=== PATIENT | female | born 1945 | race Caucasian/White ===

== ENCOUNTER 2018-10-09 14:17 | Observation (INO) | payer OTHER ==
[2018-10-09 16:05] LABS: INR 1.1; PROTHROMBIN TIME 12.8 Seconds (9.8-13.1)
[2018-10-09 16:07] LABS: PARTIAL THROMBOPLASTIN TIME 29.3 Seconds (25.6-37.1)
[2018-10-09 16:12] LABS: ALB/GLOB RATIO 1.4 (1.0-2.1); ALBUMIN 4.2 g/dL (3.5-5.0); ALT/SGPT 24 U/L (9-52); AST/SGOT 22 U/L (14-36); BLOOD UREA NITROGEN 14 mg/dl (7-17); CALCIUM 9.8 mg/dL (8.4-10.2); GFR NON-AFRICAN AMERICAN > 60
[2018-10-09 16:31] LABS: BASO # 0.2 K/uL (0.0-0.2); BASO % 1.8 % (0.0-2.0); EOS # 0.5 K/uL (0.0-0.7); EOS % 5.6 % (0.0-4.0); LYMPH # 3.1 K/uL (1.0-4.3); LYMPH % 36.3 % (20.0-40.0); MEAN CELL VOLUME 54.2 fl (81.0-99.0); MEAN CORPUSCULAR HEMOGLOBIN 14.7 pg (27.0-31.0); MEAN CORPUSCULAR HGB CONC 27.1 g/dL (33.0-37.0); MEAN PLATELET VOLUME 8.9 fl (7.2-11.7); MONO # 0.3 K/uL (0.0-0.8); NEUT # 4.4 K/uL (1.8-7.0); NEUT % 52.3 % (50.0-75.0); NRBC % 0.1 % (0.0-0.0); PLATELET COUNT 399 K/uL (130-400); RBC 4.14 Mil/uL (3.80-5.20); RED CELL DISTRIBUTION WIDTH 26.9 % (11.5-14.5); WHITE BLOOD COUNT 8.4 K/uL (4.8-10.8)
[2018-10-09 16:35] LABS: HEMOGLOBIN 6.1 g/dL (12.0-16.0)
[2018-10-09] MEDS ORDERED: Pantoprazole 40 MG in Sodium Chloride 0.9% 100 ML IVPB SCH (16:45)
--- NOTE | 2018-10-09 16:47 | ED PDOC ---
HPI: General Adult Time Seen by Provider: 10/09/18 14:56 Chief Complaint (Nursing): Abnormal Labs Chief Complaint (Provider): sent for abnormal bloodwork History Per: Patient (73 y/o female sent by Dr. Cooley for evaluation of hgb of 6. Patient has h/o gastritis and is on pantoprazole. Notes she had endoscopy/colonoscopy last year wnl. Has had dark stools last week now resolved. No vomiting/chest pain/fevers/chills. H/o intermittent sharp abdominal pain currently resolved.) Past Medical History Reviewed: Historical Data, Nursing Documentation, Vital Signs Vital Signs: Last Vital Signs Temp 98.8 F 10/09/18 14:46 Pulse 110 H 10/09/18 14:46 Resp 16 10/09/18 14:46 BP 175/80 H 10/09/18 14:46 Pulse Ox 98 10/09/18 14:46 - Family History Family History: States: No Known Family Hx - Home Medications Home Medications: Ambulatory Orders Medication Instructions Recorded Albuterol Sulfate [Proair Hfa] 2 puff IH Q6 PRN 10/09/18 Calcium Carbonate/Vitamin D3 1 tab PO BID 10/09/18 [[place] 500-Vit D3 200 Tablet] Ergocalciferol (Vitamin D2) 50,000 unit PO MO 10/09/18 [Vitamin D2] Fluticasone/Salmeterol 500/50 1 puff IH Q12 10/09/18 [Advair Diskus 500/50] Ipratropium 0.02% [Atrovent] 2.5 ml IH Q6 PRN 10/09/18 Levocetirizine Dihydrochloride 5 mg PO DAILY 10/09/18 [Xyzal] Naproxen Sodium [Aleve] 440 mg PO DAILY PRN 10/09/18 Olmesartan [BenicarNf] 40 mg PO DAILY 10/09/18 Tiotropium [Spiriva] 18 mcg IH DAILY 10/09/18 - Allergies Allergies/Adverse Reactions: Allergies Allergy/AdvReac Type Severity Reaction Status Date / Time No Known Allergies Allergy Verified 10/09/18 14:46 Review of Systems ROS Statement: Except As Marked, All Systems Reviewed And Found Negative Physical Exam - Reviewed Nursing Documentation Reviewed: Yes Vital Signs Reviewed: Yes - Physical Exam Appears: Positive for: Well, Non-toxic, No Acute Distress Head Exam: Positive for: ATRAUMATIC, NORMAL INSPECTION, NORMOCEPHALIC Skin: Positive for: Normal Color, Warm, DRY Eye Exam: Positive for: Normal appearance, EOMI, PERRL, Other (conjunctival pallor) ENT: Positive for: Normal ENT Inspection Neck: Positive for: Normal, Painless ROM Cardiovascular/Chest: Positive for: Regular Rate, Rhythm Respiratory: Positive for: CNT, Normal Breath Sounds Gastrointestinal/Abdominal: Positive for: Normal Exam, Soft Back: Positive for: Normal Inspection Rectal: Positive for: Other (brown stool. no signs of melena.) Extremity: Positive for: Normal ROM Neurologic/Psych: Positive for: Alert, Oriented - Laboratory Results Result Diagrams: 10/09/18 15:42 10/09/18 15:42 - ECG O2 Sat by Pulse Oximetry: 98 - Progress ED Course And Treament: Pantaprozole 80 mg iv x 1 dose protonic 80mg iv drip type and cross x 2 units. D/W DR. HENDERSON Disposition - Clinical Impression Clinical Impression: Anemia, Dark stools - Patient ED Disposition Is Patient to be Admitted: Yes - Disposition Disposition Time: 17:28 Condition: FAIR - Pt Status Changed To: Hospital Disposition Of: Observation
--- NOTE | 2018-10-09 17:27 | RAD ---
Date of service: 10/09/2018 HISTORY: routine COMPARISON: No prior. FINDINGS: LUNGS: No active pulmonary disease. PLEURA: No significant pleural effusion identified, no pneumothorax apparent. CARDIOVASCULAR: No aortic atherosclerotic calcification present. Normal cardiac size. Large hiatal hernia, right paraspinous.. OSSEOUS STRUCTURES: No significant abnormalities. VISUALIZED UPPER ABDOMEN: Normal. OTHER FINDINGS: None. IMPRESSION: Large right paraspinous hiatal hernia.
[2018-10-09 17:31] LABS: ANISOCYTOSIS MODERATE; BASOPHIL 1 % (0-2); EOSINOPHIL 6 % (0-7); HYPOCHROMIC MODERATE; LYMPHOCYTE 21 % (20-50); MICROCYTOSIS SLIGHT; MONOCYTE 5 % (0-10); NEUTROPHIL 67 % (42-75); PLATELET ESTIMATE NORMAL (NORMAL); POIKILOCYTOSIS SLIGHT; TOTAL CELLS COUNTED 100
[2018-10-09 17:32] LABS: LARGE PLATELETS PRESENT; OVALOCYTES MODERATE; SPHEROCYTES SLIGHT; TEARDROP CELLS SLIGHT
[2018-10-09] MEDS ORDERED: Ipratropium 0.02% Inhal Soln (0.5 mg/2.5 ml) UD IH PRN (17:36)
--- NOTE | 2018-10-09 19:09 | CP.PCM.HP ---
<Daniel aDvis - Last Filed: 10/09/18 20:27> History of Present Illness - History of Present Illness History of Present Illness: 73 yo F with pmhx of gastritis and asthma was sent to the ED by Dr. Cooley for hgb of 6. Pt reports that for the past 3 days, she has been feeling weak, and dizziness at night. She noted dark stools, which resolved 2 days prior. She reports mild SOB. Pt denies bleed from oral, rectal, vaginal or hematouria. Denies N/V. Of note: she reports that 1 year ago, she had iron injection for anemia. Denies ever receiving blood transfusion. LMP 16 years ago. PMD: Dr. Cooley Surg: none Soc: denies smoking, alcohol, illicit drugs Fam: htn and dm Meds: as listed Present on Admission - Present on Admission Any Indicators Present on Admission: No History of Uncontrolled Diabetes: No Urinary Catheter: No Review of Systems - Constitutional Constitutional: Lethargy, Malaise, Weakness - Cardiovascular Cardiovascular: absent: Chest Pain, Chest Pain at Rest - Respiratory Respiratory: Cough, Dyspnea - Gastrointestinal Gastrointestinal: absent: Abdominal Pain, Constipation, Diarrhea, Hematemesis, Hematochezia, Melena, Nausea, Vomiting - Reproductive: Female Reproductive:Female: Amenorrhea - Menstruation Menstruation: Post Menopausal - Musculoskeletal Musculoskeletal: Abnormal Gait (Uses walker at times) Past Patient History - Past Medical History & Family History Past Medical History?: Yes - Past Social History Smoking Status: Never Smoked Alcohol: None Drugs: Denies - PULMONARY Hx Respiratory Disorders: Yes Hx Asthma: Yes - GASTROINTESTINAL Hx Gastrointestinal Disorders: Yes Hx Gastritis: Yes Meds Allergies/Adverse Reactions: Allergies Allergy/AdvReac Type Severity Reaction Status Date / Time No Known Allergies Allergy Verified 10/09/18 14:46 Physical Exam - Constitutional Appears: No Acute Distress - Eye Exam Eye Exam: EOMI - ENT Exam ENT Exam: Mucous Membranes Moist - Respiratory Exam Respiratory Exam: Rales, Rhonchi, Wheezes - Cardiovascular Exam Cardiovascular Exam: REGULAR RHYTHM, +S1, +S2 - GI/Abdominal Exam GI & Abdominal Exam: Normal Bowel Sounds, Soft. absent: Tenderness - Extremities Exam Extremities exam: Negative for: calf tenderness - Neurological Exam Neurological exam: Alert, CN II-XII Intact, Oriented x3 - Psychiatric Exam Psychiatric exam: Normal Affect, Normal Mood Results - Vital Signs Recent Vital Signs: Last Vital Signs Temp 98.8 F 10/09/18 14:46 Pulse 110 H 10/09/18 14:46 Resp 16 10/09/18 14:46 BP 175/80 H 10/09/18 14:46 Pulse Ox 98 10/09/18 19:04 - Labs Result Diagrams: 10/09/18 15:42 10/09/18 15:42 Labs: Laboratory Results - last 24 hr 10/09/18 10/09/18 10/09/18 15:42 15:42 15:42 WBC 8.4 RBC 4.14 Hgb 6.1 L* Hct 22.4 L MCV 54.2 L MCH 14.7 L MCHC 27.1 L RDW 26.9 H Plt Count 399 MPV 8.9 Neut % (Auto) 52.3 Lymph % (Auto) 36.3 [place] % (Auto) 4.0 Eos % (Auto) 5.6 H Baso % (Auto) 1.8 Neut # (Auto) 4.4 Lymph # (Auto) 3.1 [place] # (Auto) 0.3 Eos # (Auto) 0.5 Baso # (Auto) 0.2 Neutrophils % (Manual) 67 Lymphocytes % (Manual) 21 Monocytes % (Manual) 5 Eosinophils % (Manual) 6 Basophils % (Manual) 1 Platelet Estimate Normal Large Platelets Present Hypochromasia (manual) Moderate Poikilocytosis (manual Slight Anisocytosis (manual) Moderate Microcytosis (manual) Slight Macrocytosis (manual) Slight Spherocytes Slight Tear Drop Cells Slight Ovalocytes Moderate PT 12.8 INR 1.1 APTT 29.3 Sodium 140 Potassium 3.8 Chloride 105 Carbon Dioxide 27 Anion Gap 12 BUN 14 Creatinine 0.8 Est GFR ( Amer) > 60 Est GFR (Non-Af Amer) > 60 Random Glucose 115 H Calcium 9.8 Total Bilirubin 0.3 AST 22 ALT 24 Alkaline Phosphatase 130 H Total Protein 7.3 Albumin 4.2 Globulin 3.1 Albumin/Globulin Ratio 1.4 Stool Occult Blood Blood Type Blood Type Confirm Antibody Screen BBK History Checked 10/09/18 10/09/18 10/09/18 15:42 15:42 16:35 WBC RBC Hgb Hct MCV MCH MCHC RDW Plt Count MPV Neut % (Auto) Lymph % (Auto) [place] % (Auto) Eos % (Auto) Baso % (Auto) Neut # (Auto) Lymph # (Auto) [place] # (Auto) Eos # (Auto) Baso # (Auto) Neutrophils % (Manual) Lymphocytes % (Manual) Monocytes % (Manual) Eosinophils % (Manual) Basophils % (Manual) Platelet Estimate Large Platelets Hypochromasia (manual) Poikilocytosis (manual Anisocytosis (manual) Microcytosis (manual) Macrocytosis (manual) Spherocytes Tear Drop Cells Ovalocytes PT INR APTT Sodium Potassium Chloride Carbon Dioxide Anion Gap BUN Creatinine Est GFR ( Amer) Est GFR (Non-Af Amer) Random Glucose Calcium Total Bilirubin AST ALT Alkaline Phosphatase Total Protein Albumin Globulin Albumin/Globulin Ratio Stool Occult Blood Negative Blood Type O POSITIVE Blood Type Confirm O POSITIVE Antibody Screen Negative BBK History Checked No verified bt Assessment & Plan - Assessment and Plan (Free Text) Assessment: 73 yo F with pmhx of gastritis and asthma was sent to the ED by Dr. Cooley for hgb of 6; admitted for transfusion of PRBC. Plan: Anemia Hgb: 6.1 EKG reviewed Symptomatic: weakness, pallor Transfuse 2 U PRBC f/u CBC after transfusion monitor vitals Asthma c/w home meds: Fluticasone/Salmeterol, Ipratropium, Tiotoprium HTN Losartan monitor bp DVT/GI prophylaxis SCDs and encourage ambulation Pantoprazole Case dw Dr. Martin Davis MD PGY2 <Sami Salazar D - Last Filed: 10/10/18 09:45> Results - Vital Signs Recent Vital Signs: Last Vital Signs Temp 98.1 F 10/10/18 07:53 Pulse 79 10/10/18 09:28 Resp 20 10/10/18 07:53 BP 123/69 10/10/18 09:28 Pulse Ox 98 10/10/18 07:53 - Labs Result Diagrams: 10/10/18 05:45 10/10/18 05:45 Labs: Laboratory Results - last 24 hr 10/09/18 10/09/18 10/09/18 15:42 15:42 15:42 WBC 8.4 RBC 4.14 Hgb 6.1 L* Hct 22.4 L MCV 54.2 L MCH 14.7 L MCHC 27.1 L RDW 26.9 H Plt Count 399 MPV 8.9 Neut % (Auto) 52.3 Lymph % (Auto) 36.3 [place] % (Auto) 4.0 Eos % (Auto) 5.6 H Baso % (Auto) 1.8 Neut # (Auto) 4.4 Lymph # (Auto) 3.1 [place] # (Auto) 0.3 Eos # (Auto) 0.5 Baso # (Auto) 0.2 Neutrophils % (Manual) 67 Lymphocytes % (Manual) 21 Monocytes % (Manual) 5 Eosinophils % (Manual) 6 Basophils % (Manual) 1 Platelet Estimate Normal Large Platelets Present Hypochromasia (manual) Moderate Poikilocytosis (manual Slight Anisocytosis (manual) Moderate Microcytosis (manual) Slight Macrocytosis (manual) Slight Spherocytes Slight Tear Drop Cells Slight Ovalocytes Moderate Schistocytes PT 12.8 INR 1.1 APTT 29.3 Sodium 140 Potassium 3.8 Chloride 105 Carbon Dioxide 27 Anion Gap 12 BUN 14 Creatinine 0.8 Est GFR ( Amer) > 60 Est GFR (Non-Af Amer) > 60 Random Glucose 115 H Calcium 9.8 Total Bilirubin 0.3 AST 22 ALT 24 Alkaline Phosphatase 130 H Total Protein 7.3 Albumin 4.2 Globulin 3.1 Albumin/Globulin Ratio 1.4 Stool Occult Blood Blood Type Blood Type Confirm Antibody Screen Crossmatch BBK History Checked 10/09/18 10/09/18 10/09/18 15:42 15:42 16:35 WBC RBC Hgb Hct MCV MCH MCHC RDW Plt Count MPV Neut % (Auto) Lymph % (Auto) [place] % (Auto) Eos % (Auto) Baso % (Auto) Neut # (Auto) Lymph # (Auto) [place] # (Auto) Eos # (Auto) Baso # (Auto) Neutrophils % (Manual) Lymphocytes % (Manual) Monocytes % (Manual) Eosinophils % (Manual) Basophils % (Manual) Platelet Estimate Large Platelets Hypochromasia (manual) Poikilocytosis (manual Anisocytosis (manual) Microcytosis (manual) Macrocytosis (manual) Spherocytes Tear Drop Cells Ovalocytes Schistocytes PT INR APTT Sodium Potassium Chloride Carbon Dioxide Anion Gap BUN Creatinine Est GFR ( Amer) Est GFR (Non-Af Amer) Random Glucose Calcium Total Bilirubin AST ALT Alkaline Phosphatase Total Protein Albumin Globulin Albumin/Globulin Ratio Stool Occult Blood Negative Blood Type O POSITIVE Blood Type Confirm O POSITIVE Antibody Screen Negative Crossmatch See Detail BBK History Checked No verified bt 10/10/18 10/10/18 05:45 05:45 WBC 8.3 RBC 4.59 Hgb 7.8 L Hct 28.1 L MCV 61.4 L D MCH 17.0 L MCHC 27.8 L RDW 33.9 H Plt Count 282 D MPV 9.3 Neut % (Auto) 47.1 L Lymph % (Auto) 41.5 H [place] % (Auto) 3.7 Eos % (Auto) 7.0 H Baso % (Auto) 0.7 Neut # (Auto) 3.9 Lymph # (Auto) 3.4 [place] # (Auto) 0.3 Eos # (Auto) 0.6 Baso # (Auto) 0.1 Neutrophils % (Manual) 68 Lymphocytes % (Manual) 16 L Monocytes % (Manual) 8 Eosinophils % (Manual) 7 Basophils % (Manual) 1 Platelet Estimate Normal Large Platelets Present Hypochromasia (manual) Moderate Poikilocytosis (manual Slight Anisocytosis (manual) Moderate Microcytosis (manual) Slight Macrocytosis (manual) Spherocytes Tear Drop Cells Slight Ovalocytes Moderate Schistocytes Slight PT INR APTT Sodium 137 Potassium 3.7 Chloride 103 Carbon Dioxide 26 Anion Gap 12 BUN 12 Creatinine 0.7 Est GFR ( Amer) > 60 Est GFR (Non-Af Amer) > 60 Random Glucose 111 H Calcium 9.1 Total Bilirubin AST ALT Alkaline Phosphatase Total Protein Albumin Globulin Albumin/Globulin Ratio Stool Occult Blood Blood Type Blood Type Confirm Antibody Screen Crossmatch BBK History Checked Attending/Attestation - Attestation I have personally seen and examined this patient.: Yes I have fully participated in the care of the patient.: Yes I have reviewed all pertinent clinical information: Yes Notes (Text): 10/10/18 09:44 Patient seen and examined with resident. Case discussed and agreed with assessment and plan of management.
--- NOTE | 2018-10-09 22:21 | CARD ---
APPROVED REPORT Date of service: 10/09/2018 EKG Measurement Heart [id number] <Conclusion> Normal sinus rhythm Normal ECG
[2018-10-10] MEDS ORDERED: Pantoprazole 40 MG in Sodium Chloride 0.9% 100 ML IVPB SCH (01:45)
[2018-10-10] MEDS: Fluticasone-Salmeterol 500-50mcg Diskus IH SCH ×2 (02:27→11:58)
[2018-10-10 07:08] LABS: BLOOD UREA NITROGEN 12 mg/dl (7-17); CALCIUM 9.1 mg/dL (8.4-10.2); GFR NON-AFRICAN AMERICAN > 60
[2018-10-10 07:14] LABS: BASO # 0.1 K/uL (0.0-0.2); EOS # 0.6 K/uL (0.0-0.7); HEMOGLOBIN 7.8 g/dL (12.0-16.0); MONO # 0.3 K/uL (0.0-0.8); NEUT # 3.9 K/uL (1.8-7.0)
[2018-10-10 08:02] LABS: BASO % 0.7 % (0.0-2.0); LYMPH # 3.4 K/uL (1.0-4.3); LYMPH % 41.5 % (20.0-40.0); MEAN CELL VOLUME 61.4 fl (81.0-99.0); MEAN CORPUSCULAR HGB CONC 27.8 g/dL (33.0-37.0); MEAN PLATELET VOLUME 9.3 fl (7.2-11.7); MONO % 3.7 % (0.0-10.0); NEUT % 47.1 % (50.0-75.0); NRBC % 0.2 % (0.0-0.0); PLATELET COUNT 282 K/uL (130-400); RBC 4.59 Mil/uL (3.80-5.20); RED CELL DISTRIBUTION WIDTH 33.9 % (11.5-14.5); WHITE BLOOD COUNT 8.3 K/uL (4.8-10.8)
[2018-10-10] MEDS ORDERED: Tiotropium 18 mcg Cap For Inhalation IH SCH (09:00)
[2018-10-10] MEDS ORDERED: Calcium-Vit D 500 mg-200 Units Tab UD PO SCH (09:00)
[2018-10-10 09:10] LABS: BASOPHIL 1 % (0-2); EOSINOPHIL 7 % (0-7); LYMPHOCYTE 16 % (20-50); MONOCYTE 8 % (0-10); NEUTROPHIL 68 % (42-75); PLATELET ESTIMATE NORMAL (NORMAL); TOTAL CELLS COUNTED 100
[2018-10-10 09:11] LABS: ANISOCYTOSIS MODERATE; HYPOCHROMIC MODERATE; LARGE PLATELETS PRESENT; MICROCYTOSIS SLIGHT; OVALOCYTES MODERATE; POIKILOCYTOSIS SLIGHT; SCHISTOCYTES SLIGHT; TEARDROP CELLS SLIGHT
--- NOTE | 2018-10-10 11:23 | CP.PCM.CON ---
History of Present Illness - History of Present Illness History of Present Illness: 73 year old female with a history of asthma, gastritis, sent from her PMDs office with a hgb of 6. The patient notes to feeling more weak with associated dizziness. She went to her PMDs office, Dr. Cooley who performed blood work. S he does admit to dark stools but denies abnormal bleeding and bruising. She does note to prior IV iron infusions in the past. Pat medical history: Asthma, gastritis, anemia Past surgical history: Denies Family history: Denies hematologic and oncologic problems Social history: Denies tobacco, alcohol, and illicit drug use. Allergies: NKA Review of systems: All remaining review of systems including HEENT, cardiovascular, respiratory, gastrointestinal, genitourinary, musculoskeletal, d ermatologic, neurologic, and psychiatric are negative unless mentioned in the HPI. Past Patient History - Past Medical History & Family History Past Medical History?: Yes - Past Social History Smoking Status: Never Smoked Alcohol: None Drugs: Denies - PULMONARY Hx Respiratory Disorders: Yes Hx Asthma: Yes - HEMATOLOGICAL/ONCOLOGICAL Hx Anemia: Yes - GASTROINTESTINAL Hx Gastrointestinal Disorders: Yes Hx Gastritis: Yes - PSYCHIATRIC Hx Substance Use: No Meds Allergies/Adverse Reactions: Allergies Allergy/AdvReac Type Severity Reaction Status Date / Time No Known Allergies Allergy Verified 10/09/18 14:46 - Medications Medications: Current Medications Calcium/Vitamin D ([place] Calcium/Vitamin D 500 Mg-200 Iu) 1 tab PO BID [facility] Last Admin: 10/10/18 09:29 Dose: 1 tab Ergocalciferol (Drisdol 50,000 Intl Units Cap) 1 cap PO MO [facility] Pantoprazole Sodium 40 mg/ (Sodium Chloride) 100 mls @ 20 mls/hr IVPB Q5H [facility] Last Admin: 10/10/18 02:08 Dose: 20 mls/hr Ipratropium [place] (Atrovent) 0.5 mg IH RQ6 PRN PRN Reason: Shortness of Breath Losartan Potassium (Cozaar) 50 mg PO DAILY [facility] Last Admin: 10/10/18 09:28 Dose: 50 mg Pantoprazole Sodium (Protonix Inj) 40 mg IVP DAILY [facility] Last Admin: 10/10/18 09:28 Dose: 40 mg Fluticasone/Salmeterol (Advair Diskus 500/50) 1 puff IH Q12 [facility] Last Admin: 10/10/18 02:27 Dose: 1 puff Tiotropium [place] (Spiriva) 18 mcg IH DAILY [facility] Last Admin: 10/10/18 09:29 Dose: 18 mcg Physical Exam - Head Exam Head Exam: ATRAUMATIC - Eye Exam Eye Exam: Normal appearance - ENT Exam ENT Exam: Mucous Membranes Dry - Respiratory Exam Respiratory Exam: NORMAL BREATHING PATTERN - Cardiovascular Exam Cardiovascular Exam: +S1, +S2 - GI/Abdominal Exam GI & Abdominal Exam: Normal Bowel Sounds - Extremities Exam Extremities exam: Positive for: normal inspection - Neurological Exam Neurological exam: Oriented x3 - Psychiatric Exam Psychiatric exam: Normal Affect, Normal Mood - Skin Skin Exam: Warm Results - Vital Signs Recent Vital Signs: Last Vital Signs Temp 98.1 F 10/10/18 07:53 Pulse 79 10/10/18 09:28 Resp 20 10/10/18 07:53 BP 123/69 10/10/18 09:28 Pulse Ox 98 10/10/18 07:53 - Labs Result Diagrams: 10/10/18 05:45 10/10/18 05:45 Labs: Laboratory Results - last 24 hr 10/09/18 10/09/18 10/09/18 15:42 15:42 15:42 WBC 8.4 RBC 4.14 Hgb 6.1 L* Hct 22.4 L MCV 54.2 L MCH 14.7 L MCHC 27.1 L RDW 26.9 H Plt Count 399 MPV 8.9 Neut % (Auto) 52.3 Lymph % (Auto) 36.3 [place] % (Auto) 4.0 Eos % (Auto) 5.6 H Baso % (Auto) 1.8 Neut # (Auto) 4.4 Lymph # (Auto) 3.1 [place] # (Auto) 0.3 Eos # (Auto) 0.5 Baso # (Auto) 0.2 Neutrophils % (Manual) 67 Lymphocytes % (Manual) 21 Monocytes % (Manual) 5 Eosinophils % (Manual) 6 Basophils % (Manual) 1 Platelet Estimate Normal Large Platelets Present Hypochromasia (manual) Moderate Poikilocytosis (manual Slight Anisocytosis (manual) Moderate Microcytosis (manual) Slight Macrocytosis (manual) Slight Spherocytes Slight Tear Drop Cells Slight Ovalocytes Moderate Schistocytes PT 12.8 INR 1.1 APTT 29.3 Sodium 140 Potassium 3.8 Chloride 105 Carbon Dioxide 27 Anion Gap 12 BUN 14 Creatinine 0.8 Est GFR ( Amer) > 60 Est GFR (Non-Af Amer) > 60 Random Glucose 115 H Calcium 9.8 Total Bilirubin 0.3 AST 22 ALT 24 Alkaline Phosphatase 130 H Total Protein 7.3 Albumin 4.2 Globulin 3.1 Albumin/Globulin Ratio 1.4 Stool Occult Blood Blood Type Blood Type Confirm Antibody Screen Crossmatch BBK History Checked 10/09/18 10/09/18 10/09/18 15:42 15:42 16:35 WBC RBC Hgb Hct MCV MCH MCHC RDW Plt Count MPV Neut % (Auto) Lymph % (Auto) [place] % (Auto) Eos % (Auto) Baso % (Auto) Neut # (Auto) Lymph # (Auto) [place] # (Auto) Eos # (Auto) Baso # (Auto) Neutrophils % (Manual) Lymphocytes % (Manual) Monocytes % (Manual) Eosinophils % (Manual) Basophils % (Manual) Platelet Estimate Large Platelets Hypochromasia (manual) Poikilocytosis (manual Anisocytosis (manual) Microcytosis (manual) Macrocytosis (manual) Spherocytes Tear Drop Cells Ovalocytes Schistocytes PT INR APTT Sodium Potassium Chloride Carbon Dioxide Anion Gap BUN Creatinine Est GFR ( Amer) Est GFR (Non-Af Amer) Random Glucose Calcium Total Bilirubin AST ALT Alkaline Phosphatase Total Protein Albumin Globulin Albumin/Globulin Ratio Stool Occult Blood Negative Blood Type O POSITIVE Blood Type Confirm O POSITIVE Antibody Screen Negative Crossmatch See Detail BBK History Checked No verified bt 10/10/18 10/10/18 05:45 05:45 WBC 8.3 RBC 4.59 Hgb 7.8 L Hct 28.1 L MCV 61.4 L D MCH 17.0 L MCHC 27.8 L RDW 33.9 H Plt Count 282 D MPV 9.3 Neut % (Auto) 47.1 L Lymph % (Auto) 41.5 H [place] % (Auto) 3.7 Eos % (Auto) 7.0 H Baso % (Auto) 0.7 Neut # (Auto) 3.9 Lymph # (Auto) 3.4 [place] # (Auto) 0.3 Eos # (Auto) 0.6 Baso # (Auto) 0.1 Neutrophils % (Manual) 68 Lymphocytes % (Manual) 16 L Monocytes % (Manual) 8 Eosinophils % (Manual) 7 Basophils % (Manual) 1 Platelet Estimate Normal Large Platelets Present Hypochromasia (manual) Moderate Poikilocytosis (manual Slight Anisocytosis (manual) Moderate Microcytosis (manual) Slight Macrocytosis (manual) Spherocytes Tear Drop Cells Slight Ovalocytes Moderate Schistocytes Slight PT INR APTT Sodium 137 Potassium 3.7 Chloride 103 Carbon Dioxide 26 Anion Gap 12 BUN 12 Creatinine 0.7 Est GFR ( Amer) > 60 Est GFR (Non-Af Amer) > 60 Random Glucose 111 H Calcium 9.1 Total Bilirubin AST ALT Alkaline Phosphatase Total Protein Albumin Globulin Albumin/Globulin Ratio Stool Occult Blood Blood Type Blood Type Confirm Antibody Screen Crossmatch BBK History Checked Assessment & Plan (1) Anemia Assessment and Plan: work up consistent with iron deficiency anemia 2U PRBC IV iron outpatient f/u Thank you for this interesting consult. Status: Acute
[2018-10-10 11:42] LABS: IRON 93 ug/dL (37-170)
--- NOTE | 2018-10-10 11:42 | CP.PCM.DIS ---
<Alba Hogan - Last Filed: 10/10/18 14:23> Provider - Provider Date of Admission: 10/09/18 17:28 Attending physician: Sami Salazar MD Consults: 10/09/18 17:36 Gastroenterology Consult Stat Comment: Consulting Provider: Florin Galarza Consulting Physician: Florin Galarza Reason for Consult: severe anemia with history of gastritis 10/10/18 09:29 Hematology Oncology Consult Stat Comment: symptomatic anemia, normal endoscopy in 2018 Consulting Provider: Jose Daniel Mo Consulting Physician: Jose Daniel Mo Reason for Consult: symptomatic anemia , 2 units pRBC's transfused Time Spent in preparation of Discharge (in minutes): 25 Diagnosis - Discharge Diagnosis (1) Symptomatic anemia Status: Acute Hospital Course - Lab Results Lab Results: Most Recent Lab Values WBC 8.3 K/uL (4.8-10.8) 10/10/18 05:45 RBC 4.59 Mil/uL (3.80-5.20) 10/10/18 05:45 Hgb 7.8 g/dL (12.0-16.0) L 10/10/18 05:45 Hct 28.1 % (34.0-47.0) L 10/10/18 05:45 MCV 61.4 fl (81.0-99.0) L D 10/10/18 05:45 MCH 17.0 pg (27.0-31.0) L 10/10/18 05:45 MCHC 27.8 g/dL (33.0-37.0) L 10/10/18 05:45 RDW 33.9 % (11.5-14.5) H 10/10/18 05:45 Plt Count 282 K/uL (130-400) D 10/10/18 05:45 MPV 9.3 fl (7.2-11.7) 10/10/18 05:45 Neut % (Auto) 47.1 % (50.0-75.0) L 10/10/18 05:45 Lymph % (Auto) 41.5 % (20.0-40.0) H 10/10/18 05:45 [place] % (Auto) 3.7 % (0.0-10.0) 10/10/18 05:45 Eos % (Auto) 7.0 % (0.0-4.0) H 10/10/18 05:45 Baso % (Auto) 0.7 % (0.0-2.0) 10/10/18 05:45 Neut # (Auto) 3.9 K/uL (1.8-7.0) 10/10/18 05:45 Lymph # (Auto) 3.4 K/uL (1.0-4.3) 10/10/18 05:45 [place] # (Auto) 0.3 K/uL (0.0-0.8) 10/10/18 05:45 Eos # (Auto) 0.6 K/uL (0.0-0.7) 10/10/18 05:45 Baso # (Auto) 0.1 K/uL (0.0-0.2) 10/10/18 05:45 Neutrophils % (Manual) 68 % (42-75) 10/10/18 05:45 Lymphocytes % (Manual) 16 % (20-50) L 10/10/18 05:45 Monocytes % (Manual) 8 % (0-10) 10/10/18 05:45 Eosinophils % (Manual) 7 % (0-7) 10/10/18 05:45 Basophils % (Manual) 1 % (0-2) 10/10/18 05:45 Platelet Estimate Normal (NORMAL) 10/10/18 05:45 Large Platelets Present 10/10/18 05:45 Hypochromasia (manual) Moderate 10/10/18 05:45 Poikilocytosis (manual Slight 10/10/18 05:45 Anisocytosis (manual) Moderate 10/10/18 05:45 Microcytosis (manual) Slight 10/10/18 05:45 Macrocytosis (manual) Slight 10/09/18 15:42 Spherocytes Slight 10/09/18 15:42 Tear Drop Cells Slight 10/10/18 05:45 Ovalocytes Moderate 10/10/18 05:45 Schistocytes Slight 10/10/18 05:45 Retic Count 2.3 % (0.5-1.5) H 10/10/18 11:26 PT 12.8 Seconds (9.8-13.1) 10/09/18 15:42 INR 1.1 10/09/18 15:42 APTT 29.3 Seconds (25.6-37.1) 10/09/18 15:42 Sodium 137 mmol/l (132-148) 10/10/18 05:45 Potassium 3.7 MMOL/L (3.6-5.0) 10/10/18 05:45 Chloride 103 mmol/L (98-107) 10/10/18 05:45 Carbon Dioxide 26 mmol/L (22-30) 10/10/18 05:45 Anion Gap 12 (10-20) 10/10/18 05:45 BUN 12 mg/dl (7-17) 10/10/18 05:45 Creatinine 0.7 mg/dl (0.7-1.2) 10/10/18 05:45 Est GFR ( Amer) > 60 10/10/18 05:45 Est GFR (Non-Af Amer) > 60 10/10/18 05:45 Random Glucose 111 mg/dL (65-105) H 10/10/18 05:45 Calcium 9.1 mg/dL (8.4-10.2) 10/10/18 05:45 Iron 93 ug/dL (37-170) 10/10/18 11:26 Total Bilirubin 0.3 mg/dl (0.2-1.3) 10/09/18 15:42 AST 22 U/L (14-36) 10/09/18 15:42 ALT 24 U/L (9-52) 10/09/18 15:42 Alkaline Phosphatase 130 U/L (38-126) H 10/09/18 15:42 Total Protein 7.3 G/DL (6.3-8.2) 10/09/18 15:42 Albumin 4.2 g/dL (3.5-5.0) 10/09/18 15:42 Globulin 3.1 gm/dL (2.2-3.9) 10/09/18 15:42 Albumin/Globulin Ratio 1.4 (1.0-2.1) 10/09/18 15:42 Stool Occult Blood Negative (NEGATIVE) 10/09/18 16:35 Blood Type O POSITIVE 10/09/18 15:42 Blood Type Confirm O POSITIVE 10/09/18 15:42 Antibody Screen Negative 10/09/18 15:42 Crossmatch See Detail 10/09/18 15:42 BBK History Checked No verified bt 10/09/18 15:42 - Hospital Course Hospital Course: 73-year-old female with PMH of gastritis and asthma was sent to the ED by Dr. Cooley for HgB of 6.0 and was admitted for symptomatic anemia (SOB,weak and dizzy). She noted dark stools, which resolved 2 days prior to presentation. Her Hg was found to be 6.1 (no other cell lineages affected) and was transfused two units PRBCs. Hemoglobin 7.8 s/p transfusion. Patient reported resolution of her symptoms after transfusion and requested to be sent home. Anemia workup ordered; Ferritin 6.1, Retic 2.3, % sat 22, TIBC 417, Vit B12 510. Venofir 200 mg IV given to increase patient's iron stores. GI consulted, Dr. Galarza recommended follow-up outpatient pending results of anemia workup. Last endoscopy and colonoscopy done 2017, WNL. Dr. oM (hematology) consulted, recommendations appreciated. Denied dizziness, nausea, vomiting, blood in stool, rash, palpitations, change in vision, weakness, SOB, chest pain or numbness/tingling. Clinically and hemodynamically stable, cleared for discharge to home. Discharge Exam - Head Exam Head Exam: ATRAUMATIC, NORMAL INSPECTION, NORMOCEPHALIC - Eye Exam Eye Exam: Normal appearance - ENT Exam ENT Exam: Mucous Membranes Moist - Respiratory Exam Respiratory Exam: NORMAL BREATHING PATTERN, UNREMARKABLE - Cardiovascular Exam Cardiovascular Exam: REGULAR RHYTHM, +S1, +S2 - GI/Abdominal Exam GI & Abdominal Exam: Soft. absent: Tenderness - Back Exam Back exam: absent: CVA tenderness (L), CVA tenderness (R) - Neurological Exam Neurological exam: Alert, Oriented x3 - Psychiatric Exam Psychiatric exam: Normal Affect, Normal Mood - Skin Skin Exam: Dry, Intact, Pallor, Warm Discharge Plan - Follow Up Plan Condition: FAIR Disposition: HOME/ ROUTINE Referrals: James Mo MD [Staff Provider] - Florin Galarza MD [Staff Provider] - Gama Cooley MD [Staff Provider] - <Sami Salazar - Last Filed: 10/10/18 17:49> Provider - Provider Date of Admission: 10/09/18 17:28 Attending physician: Sami Salazar MD Consults: 10/09/18 17:36 Gastroenterology Consult Stat Comment: Consulting Provider: Florin Galarza Consulting Physician: Florin Galarza Reason for Consult: severe anemia with history of gastritis 10/10/18 09:29 Hematology Oncology Consult Stat Comment: symptomatic anemia, normal endoscopy in 2018 Consulting Provider: Jose Daniel oM Consulting Physician: Jose Daniel Mo Reason for Consult: symptomatic anemia , 2 units pRBC's transfused Hospital Course - Lab Results Lab Results: Most Recent Lab Values WBC 8.3 K/uL (4.8-10.8) 10/10/18 05:45 RBC 4.59 Mil/uL (3.80-5.20) 10/10/18 05:45 Hgb 7.8 g/dL (12.0-16.0) L 10/10/18 05:45 Hct 28.1 % (34.0-47.0) L 10/10/18 05:45 MCV 61.4 fl (81.0-99.0) L D 10/10/18 05:45 MCH 17.0 pg (27.0-31.0) L 10/10/18 05:45 MCHC 27.8 g/dL (33.0-37.0) L 10/10/18 05:45 RDW 33.9 % (11.5-14.5) H 10/10/18 05:45 Plt Count 282 K/uL (130-400) D 10/10/18 05:45 MPV 9.3 fl (7.2-11.7) 10/10/18 05:45 Neut % (Auto) 47.1 % (50.0-75.0) L 10/10/18 05:45 Lymph % (Auto) 41.5 % (20.0-40.0) H 10/10/18 05:45 [place] % (Auto) 3.7 % (0.0-10.0) 10/10/18 05:45 Eos % (Auto) 7.0 % (0.0-4.0) H 10/10/18 05:45 Baso % (Auto) 0.7 % (0.0-2.0) 10/10/18 05:45 Neut # (Auto) 3.9 K/uL (1.8-7.0) 10/10/18 05:45 Lymph # (Auto) 3.4 K/uL (1.0-4.3) 10/10/18 05:45 [place] # (Auto) 0.3 K/uL (0.0-0.8) 10/10/18 05:45 Eos # (Auto) 0.6 K/uL (0.0-0.7) 10/10/18 05:45 Baso # (Auto) 0.1 K/uL (0.0-0.2) 10/10/18 05:45 Neutrophils % (Manual) 68 % (42-75) 10/10/18 05:45 Lymphocytes % (Manual) 16 % (20-50) L 10/10/18 05:45 Monocytes % (Manual) 8 % (0-10) 10/10/18 05:45 Eosinophils % (Manual) 7 % (0-7) 10/10/18 05:45 Basophils % (Manual) 1 % (0-2) 10/10/18 05:45 Platelet Estimate Normal (NORMAL) 10/10/18 05:45 Large Platelets Present 10/10/18 05:45 Hypochromasia (manual) Moderate 10/10/18 05:45 Poikilocytosis (manual Slight 10/10/18 05:45 Anisocytosis (manual) Moderate 10/10/18 05:45 Microcytosis (manual) Slight 10/10/18 05:45 Macrocytosis (manual) Slight 10/09/18 15:42 Spherocytes Slight 10/09/18 15:42 Tear Drop Cells Slight 10/10/18 05:45 Ovalocytes Moderate 10/10/18 05:45 Schistocytes Slight 10/10/18 05:45 Retic Count 2.3 % (0.5-1.5) H 10/10/18 11:26 PT 12.8 Seconds (9.8-13.1) 10/09/18 15:42 INR 1.1 10/09/18 15:42 APTT 29.3 Seconds (25.6-37.1) 10/09/18 15:42 Sodium 137 mmol/l (132-148) 10/10/18 05:45 Potassium 3.7 MMOL/L (3.6-5.0) 10/10/18 05:45 Chloride 103 mmol/L (98-107) 10/10/18 05:45 Carbon Dioxide 26 mmol/L (22-30) 10/10/18 05:45 Anion Gap 12 (10-20) 10/10/18 05:45 BUN 12 mg/dl (7-17) 10/10/18 05:45 Creatinine 0.7 mg/dl (0.7-1.2) 10/10/18 05:45 Est GFR ( Amer) > 60 10/10/18 05:45 Est GFR (Non-Af Amer) > 60 10/10/18 05:45 Random Glucose 111 mg/dL (65-105) H 10/10/18 05:45 Calcium 9.1 mg/dL (8.4-10.2) 10/10/18 05:45 Iron 93 ug/dL (37-170) 10/10/18 11:26 TIBC 417 ug/dL (250-450) 10/10/18 11:26 % Saturation 22 % (20-55) 10/10/18 11:26 Transferrin 284.53 mg/dL (206-381) 10/10/18 11:26 Ferritin 6.1 ng/Ml (11.1-264.0) L 10/10/18 11:26 Total Bilirubin 0.3 mg/dl (0.2-1.3) 10/09/18 15:42 AST 22 U/L (14-36) 10/09/18 15:42 ALT 24 U/L (9-52) 10/09/18 15:42 Alkaline Phosphatase 130 U/L (38-126) H 10/09/18 15:42 Total Protein 7.3 G/DL (6.3-8.2) 10/09/18 15:42 Albumin 4.2 g/dL (3.5-5.0) 10/09/18 15:42 Globulin 3.1 gm/dL (2.2-3.9) 10/09/18 15:42 Albumin/Globulin Ratio 1.4 (1.0-2.1) 10/09/18 15:42 Vitamin B12 510 pg/mL (239-931) 10/10/18 11:26 Stool Occult Blood Negative (NEGATIVE) 10/09/18 16:35 Blood Type O POSITIVE 10/09/18 15:42 Blood Type Confirm O POSITIVE 10/09/18 15:42 Antibody Screen Negative 10/09/18 15:42 Crossmatch See Detail 10/09/18 15:42 BBK History Checked No verified bt 10/09/18 15:42 Attending/Attestation - Attestation I have personally seen and examined this patient.: Yes I have fully participated in the care of the patient.: Yes I have reviewed all pertinent clinical information, including history, physical exam and plan: Yes Notes (Text): 10/10/18 17:46 Patient seen and examined with resident. Case discussed and agreed with assessment. Patient received 2 units of PRBC and raised up Hgb to 7.8 even before receiving the 2nd unit. Patient felt better and was sent home in stable conditon.
[2018-10-10 11:51] LABS: % IRON SATURATION 22 % (20-55); TOTAL IRON BINDING CAPACITY 417 ug/dL (250-450)
[2018-10-10 12:18] LABS: FERRITIN 6.1 ng/Ml (11.1-264.0)
--- NOTE | 2018-10-10 14:28 | CP.PCM.CON ---
History of Present Illness - History of Present Illness History of Present Illness: 73 yo female found to be very anemic. Recently had upper and lower endoscopy though results not immediately available. has been weak lately and brought to ER. Review of Systems - Constitutional Constitutional: absent: Chills - EENT Eyes: absent: Blurred Vision Ears: absent: Ear Discharge Nose/Mouth/Throat: absent: Nasal Congestion - Breasts Breasts: absent: Change in Shape - Cardiovascular Cardiovascular: absent: Chest Pain - Respiratory Respiratory: absent: Dyspnea - Gastrointestinal Gastrointestinal: absent: Abdominal Pain - Genitourinary Genitourinary: absent: Change in Urinary Stream Past Patient History - Past Medical History & Family History Past Medical History?: Yes - Past Social History Smoking Status: Never Smoked Alcohol: None Drugs: Denies - PULMONARY Hx Respiratory Disorders: Yes Hx Asthma: Yes - HEMATOLOGICAL/ONCOLOGICAL Hx Anemia: Yes - GASTROINTESTINAL Hx Gastrointestinal Disorders: Yes Hx Gastritis: Yes - PSYCHIATRIC Hx Substance Use: No Meds Allergies/Adverse Reactions: Allergies Allergy/AdvReac Type Severity Reaction Status Date / Time No Known Allergies Allergy Verified 10/09/18 14:46 - Medications Medications: Current Medications Calcium/Vitamin D (Oyster Shell Calcium/Vitamin D 500 Mg-200 Iu) 1 tab PO BID [facility] Last Admin: 10/10/18 09:29 Dose: 1 tab Ergocalciferol (Drisdol 50,000 Intl Units Cap) 1 cap PO MO [facility] Pantoprazole Sodium 40 mg/ (Sodium Chloride) 100 mls @ 20 mls/hr IVPB Q5H [facility] Last Admin: 10/10/18 02:08 Dose: 20 mls/hr Ipratropium [place] (Atrovent) 0.5 mg IH RQ6 PRN PRN Reason: Shortness of Breath Losartan Potassium (Cozaar) 50 mg PO DAILY [facility] Last Admin: 10/10/18 09:28 Dose: 50 mg Pantoprazole Sodium (Protonix Inj) 40 mg IVP DAILY [facility] Last Admin: 10/10/18 09:28 Dose: 40 mg Fluticasone/Salmeterol (Advair Diskus 500/50) 1 puff IH Q12 [facility] Last Admin: 10/10/18 11:58 Dose: 1 puff Tiotropium [place] (Spiriva) 18 mcg IH DAILY [facility] Last Admin: 10/10/18 09:29 Dose: 18 mcg Physical Exam - Head Exam Head Exam: ATRAUMATIC - Eye Exam Eye Exam: Normal appearance - ENT Exam ENT Exam: Mucous Membranes Moist - Neck Exam Neck exam: Positive for: Normal Inspection - Respiratory Exam Respiratory Exam: Clear to Auscultation Bilateral - Cardiovascular Exam Cardiovascular Exam: REGULAR RHYTHM, +S1, +S2 - GI/Abdominal Exam GI & Abdominal Exam: Normal Bowel Sounds, Soft. absent: Tenderness Results - Vital Signs Recent Vital Signs: Last Vital Signs Temp 98.2 F 10/10/18 11:18 Pulse 90 10/10/18 11:18 Resp 19 10/10/18 11:18 BP 151/57 H 10/10/18 11:18 Pulse Ox 100 10/10/18 11:18 - Labs Result Diagrams: 10/10/18 05:45 10/10/18 05:45 Labs: Laboratory Results - last 24 hr 10/09/18 10/09/18 10/09/18 15:42 15:42 15:42 WBC 8.4 RBC 4.14 Hgb 6.1 L* Hct 22.4 L MCV 54.2 L MCH 14.7 L MCHC 27.1 L RDW 26.9 H Plt Count 399 MPV 8.9 Neut % (Auto) 52.3 Lymph % (Auto) 36.3 [place] % (Auto) 4.0 Eos % (Auto) 5.6 H Baso % (Auto) 1.8 Neut # (Auto) 4.4 Lymph # (Auto) 3.1 [place] # (Auto) 0.3 Eos # (Auto) 0.5 Baso # (Auto) 0.2 Neutrophils % (Manual) 67 Lymphocytes % (Manual) 21 Monocytes % (Manual) 5 Eosinophils % (Manual) 6 Basophils % (Manual) 1 Platelet Estimate Normal Large Platelets Present Hypochromasia (manual) Moderate Poikilocytosis (manual Slight Anisocytosis (manual) Moderate Microcytosis (manual) Slight Macrocytosis (manual) Slight Spherocytes Slight Tear Drop Cells Slight Ovalocytes Moderate Schistocytes Retic Count PT 12.8 INR 1.1 APTT 29.3 Sodium 140 Potassium 3.8 Chloride 105 Carbon Dioxide 27 Anion Gap 12 BUN 14 Creatinine 0.8 Est GFR ( Amer) > 60 Est GFR (Non-Af Amer) > 60 Random Glucose 115 H Calcium 9.8 Iron TIBC % Saturation Ferritin Total Bilirubin 0.3 AST 22 ALT 24 Alkaline Phosphatase 130 H Total Protein 7.3 Albumin 4.2 Globulin 3.1 Albumin/Globulin Ratio 1.4 Vitamin B12 Stool Occult Blood Blood Type Blood Type Confirm Antibody Screen Crossmatch BBK History Checked 10/09/18 10/09/18 10/09/18 15:42 15:42 16:35 WBC RBC Hgb Hct MCV MCH MCHC RDW Plt Count MPV Neut % (Auto) Lymph % (Auto) [place] % (Auto) Eos % (Auto) Baso % (Auto) Neut # (Auto) Lymph # (Auto) [place] # (Auto) Eos # (Auto) Baso # (Auto) Neutrophils % (Manual) Lymphocytes % (Manual) Monocytes % (Manual) Eosinophils % (Manual) Basophils % (Manual) Platelet Estimate Large Platelets Hypochromasia (manual) Poikilocytosis (manual Anisocytosis (manual) Microcytosis (manual) Macrocytosis (manual) Spherocytes Tear Drop Cells Ovalocytes Schistocytes Retic Count PT INR APTT Sodium Potassium Chloride Carbon Dioxide Anion Gap BUN Creatinine Est GFR ( Amer) Est GFR (Non-Af Amer) Random Glucose Calcium Iron TIBC % Saturation Ferritin Total Bilirubin AST ALT Alkaline Phosphatase Total Protein Albumin Globulin Albumin/Globulin Ratio Vitamin B12 Stool Occult Blood Negative Blood Type O POSITIVE Blood Type Confirm O POSITIVE Antibody Screen Negative Crossmatch See Detail BBK History Checked No verified bt 10/10/18 10/10/18 10/10/18 05:45 05:45 11:26 WBC 8.3 RBC 4.59 Hgb 7.8 L Hct 28.1 L MCV 61.4 L D MCH 17.0 L MCHC 27.8 L RDW 33.9 H Plt Count 282 D MPV 9.3 Neut % (Auto) 47.1 L Lymph % (Auto) 41.5 H [place] % (Auto) 3.7 Eos % (Auto) 7.0 H Baso % (Auto) 0.7 Neut # (Auto) 3.9 Lymph # (Auto) 3.4 [place] # (Auto) 0.3 Eos # (Auto) 0.6 Baso # (Auto) 0.1 Neutrophils % (Manual) 68 Lymphocytes % (Manual) 16 L Monocytes % (Manual) 8 Eosinophils % (Manual) 7 Basophils % (Manual) 1 Platelet Estimate Normal Large Platelets Present Hypochromasia (manual) Moderate Poikilocytosis (manual Slight Anisocytosis (manual) Moderate Microcytosis (manual) Slight Macrocytosis (manual) Spherocytes Tear Drop Cells Slight Ovalocytes Moderate Schistocytes Slight Retic Count PT INR APTT Sodium 137 Potassium 3.7 Chloride 103 Carbon Dioxide 26 Anion Gap 12 BUN 12 Creatinine 0.7 Est GFR ( Amer) > 60 Est GFR (Non-Af Amer) > 60 Random Glucose 111 H Calcium 9.1 Iron TIBC % Saturation Ferritin 6.1 L Total Bilirubin AST ALT Alkaline Phosphatase Total Protein Albumin Globulin Albumin/Globulin Ratio Vitamin B12 510 Stool Occult Blood Blood Type Blood Type Confirm Antibody Screen Crossmatch BBK History Checked 10/10/18 10/10/18 11:26 11:26 WBC RBC Hgb Hct MCV MCH MCHC RDW Plt Count MPV Neut % (Auto) Lymph % (Auto) [place] % (Auto) Eos % (Auto) Baso % (Auto) Neut # (Auto) Lymph # (Auto) [place] # (Auto) Eos # (Auto) Baso # (Auto) Neutrophils % (Manual) Lymphocytes % (Manual) Monocytes % (Manual) Eosinophils % (Manual) Basophils % (Manual) Platelet Estimate Large Platelets Hypochromasia (manual) Poikilocytosis (manual Anisocytosis (manual) Microcytosis (manual) Macrocytosis (manual) Spherocytes Tear Drop Cells Ovalocytes Schistocytes Retic Count 2.3 H PT INR APTT Sodium Potassium Chloride Carbon Dioxide Anion Gap BUN Creatinine Est GFR ( Amer) Est GFR (Non-Af Amer) Random Glucose Calcium Iron 93 TIBC 417 % Saturation 22 Ferritin Total Bilirubin AST ALT Alkaline Phosphatase Total Protein Albumin Globulin Albumin/Globulin Ratio Vitamin B12 Stool Occult Blood Blood Type Blood Type Confirm Antibody Screen Crossmatch BBK History Checked Assessment & Plan (1) Symptomatic anemia Assessment and Plan: Has microcytic anemia. No active bleeding. Transfuse to above 8 and replemish iron. Status: Acute
[2018-10-10 14:42] VITALS: BP 140/79; PULSE 79; RESP 17; TEMP 98.6; O2SAT 99
[2018-10-10 18:23] LABS: FOLATE 14.3 ng/mL
[2018-10-13] MEDS ORDERED: Ergocalciferol 50,000 Intl Units Cap PO SCH (17:36)
== END 2018-10-10 15:03 | disposition home or self-care (01) ==
LOC: H.ER 14:17 → INTOOBSV 17:28 → H.ERHOLD 17:28
DX: D50.9 Iron deficiency anemia, unspecified (principal); J45.909 Unspecified asthma, uncomplicated; K29.70 Gastritis, unspecified, without bleeding; R19.5 Other fecal abnormalities
CPT/HCPCS: 36430; 71045; 80048; 80053; 82607; 82728; 82746; 83540; 84466; 85025; 85044; 85610; 85730; 86850; 86900; 86920; 93005; 96365; 96366; 96367; 96375; 96376; 99283; C9113; G0328; G0378; J1756; P9051